=== PATIENT | female | born 1960 | race Caucasian/White ===

== ENCOUNTER 2025-09-09 14:51 | Emergency (ER) | payer BC, SELFPAY ==
[2025-09-09 15:03] VITALS: BP 114/79
[2025-09-09 15:22] LABS: Urine Character Clear (Clear)
[2025-09-09 15:24] LABS: Hematocrit 36.5 % (37.0-47.0); Hemoglobin 12.2 g/dL (12.0-16.0); Mean Corp Hgb Conc. 33.4 g/dL (33.0-37.0); Mean Corpuscular Volume 87.3 fL (81.0-99.0); Nucleated Red Blood Cells % 0 %; Platelet Count 262 10^3/uL (130-400); Red Cell Dist. Width 13.2 % (11.5-14.5)
[2025-09-09 15:33] LABS: Urine Red Blood Cell 0-2 /HPF (0-2); Urine Squamous Cell >30 /LPF (Few); Urine White Cell 0-2 /HPF (0-5)
[2025-09-09 15:42] LABS: ALT (SGPT) 40 U/L (0-35); AST (SGOT) 35 U/L (14-36); Albumin 4.4 g/dl (3.5-5.0); Alkaline Phosphatase 70 U/L (38-126); Blood Urea Nitrogen 14 mg/dl (7-17); Calcium 9.2 mg/dl (8.4-10.2); Carbon Dioxide 29 mmol/L (22-30); Chloride 97 mmol/L (98-107); Glucose 104 mg/dl (70-99); Potassium 3.9 mmol/L (3.5-5.1); Sodium 133 mmol/L (135-145); Total Protein 7.2 g/dl (6.3-8.2); eGFR > 60.00
--- NOTE | 2025-09-09 17:09 | ED.GENMED ---
History of Present Illness
General
Chief Complaint: Female Emergency Medicine/Gu symptoms
Source: patient
Exam Limitations: none
Time Seen by Provider: 09/09/25 16:31
History of Present Illness
History of Present Illness:
64yoF with a history of hypothyroidism presenting for evaluation of UTI symptoms. Symptoms initially began 3 weeks ago. She was seen at urgent care and was prescribed a 3-day course of Bactrim. Symptoms seem to improve initially but recurred last
week. She was again seen at urgent care and prescribed cefuroxime x 1 week for a UTI and she has one dose left. She was feeling well but symptoms again returned yesterday. She reports suprapubic pressure in the constant urge to urinate. No
associated dysuria, hematuria, flank pain, nausea, vomiting, fevers, chills. No new sexual partners and she denies concern for STDs. She called urgent care again today and was told that both of her urine cultures came back negative and was told to
go to the ED for evaluation.
Phy Exam
General Physical Exam
General Presentation: well appearing and no apparent distress
General age: appears stated age
General Skin: warm and dry
General Habitus: normal
General Mental: alert
ENT Exam
ENT Exam: normocephalic
Pulmonary Exam
Pulmonary Exam: no respiratory distress
Gastrointestinal Exam
Gastrointestinal Exam: soft, non distended, no cva tenderness and other (+Suprapubic tenderness. No rebound or guarding. No CVA tenderness. )
Neurological Exam
Neurological Exam: alert
[place] Coma Scale
Eye Opening: Spontaneous
Verbal Response: Oriented
Motor Response: Obeys Commands
GCS Total Score: 15
Skin Exam
Skin Exam: normal color and warm/dry
Psychiatric Exam
Psychiatric Exam: normal mood/affect
Course
Orders/Labs/Results
Orders:
Orders
09/09/25 15:14
CMP [Comprehensive Metabolic Panel] Urgent
Complete Blood Count/With Diff Urgent
Urinalysis Reflex To Culture Urgent
Date Specimen was Collected: 09/09/25
Time Specimen was Collected: 15:08
Urine Microscopic Reflex Cult Urgent
Urine Culture Urgent
MICHELLE Source: U
Specimen Description:
Date Specimen was Collected: 09/09/25
Time Specimen was Collected: 15:08
09/09/25 17:09
CT Abd/pel Without Iv Or Oral Urgent
Comment:
Reason For Exam: urinary frequency, suprapubic pain
Abnormal Lab Results
09/09/25
15:14
RBC 4.18 L 10^6/uL
(4.20-5.40)
Hct 36.5 L %
(37.0-47.0)
Monocytes % 9.7 H %
(1.7-9.3)
Sodium 133 L mmol/L
(135-145)
Chloride 97 L mmol/L
(98-107)
Glucose 104 H mg/dl
(70-99)
ALT 40 H U/L
(0-35)
Urine Bacteria (Reflex) Moderate A
(Negative)
Urine Albumin (Reflex) 1+ A
(Neg - Trace)
09/09/25 15:14
09/09/25 15:14
Vital Signs
Initial and Last Documented VS:
Initial Vital Signs
Temp Pulse Resp BP Pulse Ox
98.5 F 70 20 114/79 100
09/09/25 15:03 09/09/25 15:03 09/09/25 15:03 09/09/25 15:03 09/09/25 15:03
Last Documented Vital Signs
Temp Pulse Resp BP Pulse Ox
98.5 F 70 20 114/79 100
09/09/25 15:03 09/09/25 15:03 09/09/25 15:03 09/09/25 15:03 09/09/25 17:11
MDM/Problems Addressed
Differential Diagnosis Includes:
64yoF here with urinary frequency and suprapubic discomfort x 3 weeks. Prescribed 2 course of abx at urgent care for UTIs although both urine cultures reportedly came back normal. VSS. Patient well appearing in no distress. Mild suprapubic
tenderness on abdominal exam. Differential diagnosis includes: UTI, urinary retention, kidney stone, hyperglycemia
Initial ED plan: Labs obtained in triage which are overall unremarkable including normal renal function and glucose. Moderate bacteria on microscopic urinalysis although only 0-2 WBCs noted with >30/LPF squamous epithelial cells suggesting
contaminated sample. Will check CT abdomen without contrast.
*Pulse Oximetry
SaO2: 100
Oxygen Mode of Delivery: Room air
Patient hypoxic: no
*Critical Care Note
Total Time (30-74mins, 75-104mins- exclusive of procedures): Not Applicable
Update Note
Update Note:
No hydronephrosis or urinary tract calculi noted on CT. There is a moderate to large amount of stool within the colon suggesting constipation. Discussed this with patient. She does not feel constipated and last bowel movement was earlier today.
Postvoid residual 29 cc. Unclear etiology of symptoms. She is requesting additional antibiotics although this is not warranted at this time and will await urine culture results. Patient referred to urology for follow-up. Patient discharged in
stable condition.
ED Attending Note
-
Portions of this chart may have been created with voice recognition software.� Occasional wrong word or��sound alike� substitutions may have occurred due to the inherent limitations of voice recognition software.
Discharge Plan
Departure
Patient Disposition: Home (Routine Discharge)
Date of Disposition: 09/09/25
Time of Disposition: 20:16
Patient with high blood pressure during this ER visit?: No
Discharge Problem:
Urinary frequency
Instructions: Urinalysis
Referrals:
Roberto Carlos Garcia MD [Family Provider, Family Practice]
Catherine Watt MD [Active, Urology]
Activity Restrictions/Additional Instructions:
Increase your fluid and fiber intake to help with constipation. Start taking MiraLAX as needed.
Please call tomorrow to schedule follow-up appointments with your family doctor as well as urology. Return to the ER with any worsening symptoms including fevers or flank pain.
Interventions
Interventions:
*Neglect/Abuse Screening Last Done: 09/09/25 15:03
*ED COVID-19 Vaccine History Last Done: 09/09/25 15:03
*ED Influenza Vaccine History Last Done: 09/09/25 15:03
*Risk Screen - Suicide (C-SSRS) Last Done: 09/09/25 15:03
*Nursing Disposition Last Done: 09/09/25 20:34
ED-Female Genitourinary Assessment Last Done: 09/09/25 17:03
Discharge Date and Time
Discharge Date/Time: 09/09/25 20:36
Print Language: [place]BAN[place]
== END 2025-09-09 20:36 | disposition home or self-care (01) ==
LOC: EMR 14:51
PROVIDERS: Emergency Medicine; EMERGENCY PHYSICIAN Emergency Medicine; FAMILY PHYSICIAN Student in an Organized Health Care Education/Training Program
DX: R35.0 Frequency of micturition (principal); R10.24 Suprapubic pain; E03.9 Hypothyroidism, unspecified; Z87.440 Personal history of urinary (tract) infections
CPT/HCPCS: 99285; 51798; 74176; 80053; 81003; 81015; 85025; 87086